=== PATIENT | female | born 1990 | race Caucasian/White ===

== ENCOUNTER 2016-11-05 23:35 | Observation (INO) ==
--- NOTE | 2016-11-06 00:09 | PROVIDER DOCUMENTATION ---
HPI-Female /OB/Breast - General Chief Complaint: Female Stated Complaint: ABD PAIN Time Seen by Provider: 11/05/16 23:48 Source: reports: patient Allergies/Adverse Reactions: Patient Allergies Allergy/AdvReac Type Severity Reaction Status Date / Time codeine AdvReac VOMITING Verified 11/05/16 23:47 Home Medications: Home Medication List Medication Instructions Recorded Confirmed Last Taken Type NK [No Home Medications] 11/05/16 11/05/16 Unknown History - History of Present Illness-Female /OB Nature of Presenting Problem: Pt is a 26 y/o f c chief complaint of severe abd pain p sexual intercours this evening. Pt noted some mild pain during intercourse but had more profound pain after. She also reports dysuria. Pt denies any vaginal bleeding or d/c. 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 Pt denies other medical hx. On arrival, pt is in moderate distress. Review of Systems - Adult - REVIEW OF SYSTEMS - ADULT Constitutional: reports: no symptoms reported. denies: chills, fatique Eyes: reports: no symptoms reported. denies: blurred vision, double vision Ears, Nose, Mouth & Throat: reports: no symptoms reported. denies: ear pain, nose pain Cardiovascular: reports: no symptoms reported. denies: chest pain, orthopnea Respiratory: reports: no symptoms reported. denies: cough, shortness of breath Gastrointestinal: reports: see HPI, abdominal pain. denies: nausea Genitourinary: reports: no symptoms reported. denies: dysuria, hematuria Musculoskeletal: reports: no symptoms reported. denies: joint pain, joint swelling Integumentary: reports: no symptoms reported. denies: hives, itching Neurological: reports: no symptoms reported. denies: numbness, paresthesia Psychiatric: reports: no symptoms reported. denies: anxiety, emotional problems Endocrine: reports: no symptoms reported. denies: cold intolerance, heat intolerance Hematologic/Lymphatic: reports: no symptoms reported. denies: blood clots, lymphedema Allergic/Immunologic: reports: no symptoms reported. denies: allergic reactions , food allergy All Other Systems: Reviewed and Negative Past History - Adult - PAST MEDICAL HISTORY-ADULT Review of Records: reports: Old Records Reviewed, Nursing Assessment Review, Medications Reviewed, Social history reviewed & non-contributory. Major Childhood Illnesses: reports: denies history Cardiovascular: reports: denies history Respiratory: reports: denies history Gastrointestinal: reports: denies history Obstetrical/Gynecological: reports: denies history Genitourinary: reports: denies history Musculoskeletal: reports: denies history Neurological: reports: denies history Endocrine/Immune: reports: denies history Other Conditions: reports: denies history - IMMUNIZATION STATUS Childhood Immunizations: See Nurse Assessment Flu Vaccine: See Nurse Assessment - FAMILY HISTORY Family History: reviewed, not pertinent - SOCIAL HISTORY Smoking: denies Substance Use: none/never Alcohol Use Frequency: never Physical Exam-General - PHYSICAL EXAM-ADULT Initial Vital Signs Reviewed: Yes - CONSTITUTIONAL General Appearance: alert, no apparent distress - EYES Eyes: PERRL/EOMI, pink conjunctivae - HEAD, EARS, NOSE, MOUTH & THROAT HENMT: normocephalic/atraumatic, moist mucous membranes, normal ENT inspection - NECK Neck: normal inspection - RESPIRATORY Respiratory: chest non-tender, lungs clear, normal breath sounds - CARDIOVASCULAR Cardiovascular: normal peripheral pulses, regular rate, rhythm - GASTROINTESTINAL (ABDOMEN) Abdominal Exam: normal bowel sounds, tenderness (suprapubic and adnexal) - LYMPHATIC Lymphatic: no adenopathy - MUSCULOSKELETAL Back Exam: normal inspection, no CVA tenderness, no vertebral tenderness Extremity: normal range of motion, non-tender, normal inspection - SKIN Integumentary: normal color, normal turgor, warm/dry - NEUROLOGIC Neurologic: grossly normal, no motor/sensory deficits - PSYCHIATRIC Psych/Mental Status: normal mood/affect, normal thought content, normal thought process, oriented x 3 Progress - PLAN OF CARE/RESULTS Progress/Plan/Lab Results: Vital Signs - 8 hr 11/05/16 23:43 11/06/16 00:47 Temperature 97.1 F L Pulse Rate 92 H Pulse Rate [Sitting] 78 Pulse Rate [Standing] 91 H Pulse Rate [Supine] 76 Respiratory Rate 16 Blood Pressure 117/69 Blood Pressure [Sitting] 112/66 Blood Pressure [Standing] 107/65 Blood Pressure [Supine] 118/69 O2 Sat by Pulse Oximetry 97 Bedside Urine ED: Urine Bedside Start: 11/05/16 23:48 Freq: ORDERED Status: Active Activity Type Activity Date Activity User E-Sign Co-Sign Detail Recorded Client Recorded Date Recorded By Document 11/06/16 00:10 [id number] 11/06/16 00:11 [id number] 11/06/16 00:10 Point of Care [Bedside Point of Care] -Lot # [id number] - Results Negative -Control Line Visible? Yes Laboratory Results - last 24 hr 11/05/16 11/06/16 11/06/16 23:50 00:39 00:39 WBC 20.79 H RBC 4.32 Hgb 12.6 Hct 37.1 MCV 85.9 MCH 29.2 MCHC 34.0 RDW Std Deviation 13.1 Plt Count 192 MPV 10.7 H Immature Gran % (Auto) 0.2 Neut % (Auto) 90.3 H Lymph % (Auto) 4.9 L [place] % (Auto) 4.6 Eos % (Auto) 0.0 Baso % (Auto) 0.0 Immature Gran # (Auto) 0.04 Neut # (Auto) 18.78 H Lymph # (Auto) 1.01 L [place] # (Auto) 0.95 H Eos # (Auto) 0.00 Baso # (Auto) 0.01 Sodium 134 L Potassium 3.7 Chloride 101 Carbon Dioxide 22 L Anion Gap 12 BUN 9 Creatinine 0.6 Estimated GFR/1.73 m2 > 60 BUN/Creatinine Ratio 15 Glucose 113 H Calculated Osmolality 268 Calcium 9.8 Total Bilirubin 0.70 AST 15 ALT 9 L Alkaline Phosphatase 45 Total Protein 6.9 Albumin 4.4 Globulin 3.0 Albumin/Globulin Ratio 2.0 Urine Source CLEAN CATCH Urine Color YELLOW Urine Clarity CLEAR Urine pH 5.0 Ur Specific [place] 1.020 Urine Protein TRACE A Urine Ketones 3+(Large) A Urine Blood TRACE Urine Nitrite NEGATIVE Urine Bilirubin NEGATIVE Urine Urobilinogen NORMAL Urine Microscopic RBC <10 Urine WBC TRACE A Urine Microscopic WBC <10 Ur Epithelial Cells <10 Urine Bacteria 1+ Urine Glucose NEGATIVE Orders Category Date Time Status ED: Orthostatic Vital Signs (E as directed Care 11/06/16 00:14 Active Pelvic set up DIRECTED Care 11/05/16 23:52 Active Saline Loc NOW Care 11/06/16 00:14 Active [ED: Urine Bedside] ORDERED Care 11/05/16 23:[address] ABD/PELVIS W/ IV CONT ONLY [CT] Stat Exams 11/06/16 00:14 Taken CBC WITH ELECTRONIC DIFF [HEME] Stat Lab 11/06/16 00:39 Completed COMPREHENSIVE METABOLIC PANEL [CHEM] Stat Lab 11/06/16 00:[address] W/POSS RFLX CULT [URINALYSIS] Stat Lab 11/06/16 00:15 Completed URINE CULTURE [RM] Routine Lab 11/06/16 01:44 Ordered Hydromorphone [Dilaudid] Med 11/06/16 00:15 Discontinued 1 mg IV NOW ONE Ondansetron [Zofran] Med 11/06/16 00:15 Discontinued 4 mg IV NOW ONE Result Diagrams: 11/06/16 00:39 11/06/16 00:39 - CT/MRI 1 CT Study: Abdomen, Pelvis Impression: Abnormal (Moderate amount of free fluid in the pelvis along with several loculated peripherally enhancing fluid collections in the lower pelvis. Differential includes pelvic inflammatory disease with multiple abscesses, tubo-ovarian abscess, or ovarian/parovarian cysts. Further evaluation with ultrasound may be helpful - prelim radiology report.) Departure - Departure Date of Disposition Decision: 11/06/16 Time of Disposition Decision: 02:23 DIAGNOSIS: Pelvic inflammatory disease (PID) Disposition: ADMITTED INPATIENT 09 Certified Medical Emergency: Emergent Condition: Stable Referrals and Follow-Ups: Elian Hector MD [ACTIVE STAFF PHYSICIAN] - None,PCP [Primary Care Provider] - Work Excuses: Return to School/Parent Work - Critical Care Note This patient required my direct & personal management of CC.: No Attestation - Physician/ GISSELLE Attestation Patient care was provided by Advanced Practice Provider:: Yes Advanced Practice Provider:: Zay Velazquez Advanced Practice Provider documentation review:: The Mid-level provider documentation, treatment plan and medical decision making was reviewed by the physician who agrees with all treatment and medical decision making by the P.
[2016-11-06] MEDS ORDERED: DILAUDID IV ONE (00:15)
[2016-11-06] MEDS ORDERED: ZOFRAN IV ONE (00:15)
[2016-11-06 00:59] LABS: AGAP 12; ALBUMIN 4.4 g/dL (3.5-5.0); ALKALINE PHOSPHATASE 45 U/L (32-104); BUN 9 mg/dL (8-22); CALCIUM 9.8 mg/dL (8.8-10.2); CHLORIDE 101 mmol/L (98-107); COSMO 268; GOT 15 U/L (10-30); GPT 9 U/L (10-36); POTASSIUM 3.7 mmol/L (3.5-5.1); SODIUM 134 mmol/L (136-145); TCO2 22 mmol/L (25-35); TOTAL PROTEIN 6.9 g/dL (6.3-8.3)
[2016-11-06 01:32] LABS: HEMATOCRIT 37.1 % (37.0-47.0); HEMOGLOBIN 12.6 g/dL (12.0-16.0); IMM GRAN# 0.04 X1000 (0.0-0.04); IMM GRAN% 0.2 % (0.0-0.5); LYMPH# 1.01 X1000 (1.2-3.4); LYMPH% 4.9 % (20.5-51.1); MANUAL DIFF NEEDED? NO; MCH 29.2 PG (27-31); MCV 85.9 FL (81-99); MONO# 0.95 X1000 (0.11-0.59); MONO% 4.6 % (1.7-9.3); MPV 10.7 FL (7.4-10.4); NEUT% 90.3 % (42.2-75.2); PLT 192 X1000 (130-400); RBC 4.32 XMIL (4.2-5.4)
[2016-11-06 01:44] LABS: BILIRUBIN URINE NEGATIVE (NEGATIVE); BLOOD URINE TRACE (NEGATIVE); CLARITY CLEAR (CLEAR); COLOR YELLOW; GLUCOSE URINE NEGATIVE (NEGATIVE); LEUKOCYTES URINE TRACE (NEGATIVE); NITRITE URINE NEGATIVE (NEGATIVE); PROTEIN URINE TRACE mg/dL (NEGATIVE); URINE CULTURE PL NEEDED? YES; URINE EPITHELIAL CELLS <10 /HPF (<10); URINE RBC <10 /HPF (<10); URINE SOURCE CLEAN CATCH; URINE WBC <10 /HPF (<10); UROBILINOGEN URINE NORMAL
[2016-11-06] MEDS ORDERED: ZOSYN 3.375 GM/NS 3.375 GM/50 ML IVPB IV ONE (02:24)
[2016-11-06] MEDS ORDERED: FLAGYL 750 MG in NS 150 ML IV ONE (02:24)
[2016-11-06] MEDS ORDERED: MORPHINE IV PRN (02:27)
[2016-11-06] MEDS ORDERED: NS 1,000 ML IV ONE (02:27)
[2016-11-06] MEDS ORDERED: FLAGYL ONE (02:28)
[2016-11-06] MEDS ORDERED: [UNRECOGNIZED DRUG - OTHER] ONE (02:28)
[2016-11-06] MEDS: ZOFRAN IV PRN ×2 (03:12→09:14)
[2016-11-06 06:03] LABS: BASO% 0.1 % (0.0-0.8); HEMATOCRIT 33.5 % (37.0-47.0); HEMOGLOBIN 11.3 g/dL (12.0-16.0); IMM GRAN# 0.04 X1000 (0.0-0.04); IMM GRAN% 0.2 % (0.0-0.5); LYMPH# 0.91 X1000 (1.2-3.4); LYMPH% 5.6 % (20.5-51.1); MANUAL DIFF NEEDED? NO; MCH 29.3 PG (27-31); MCHC 33.7 g/dL (33-37); MCV 86.8 FL (81-99); MONO# 0.76 X1000 (0.11-0.59); MONO% 4.7 % (1.7-9.3); MPV 10.2 FL (7.4-10.4); NEUT% 89.4 % (42.2-75.2); PLT 145 X1000 (130-400); RBC 3.86 XMIL (4.2-5.4)
[2016-11-06 06:33] VITALS: BP 90/40
[2016-11-06] MEDS ORDERED: PERCOCET-5 PO PRN (07:24)
[2016-11-06] MEDS: MORPHINE IV PRN ×2 (09:14→12:05)
--- NOTE | 2016-11-06 10:09 | Diag Imaging Result Doc PS360 ---
EXAM: US PELVIC NON-GASKET SUPERVISOR COMPLETE, US TRANSVAGINAL NON-OB INDICATION: Pelvic cysts COMPARISON: None. FINDINGS: The uterine echotexture is grossly unremarkable measuring up to 8.6 x 4.1 x 3.3 cm. The endometrium is 1.3 cm in thickness. The left ovary is grossly unremarkable measuring up to 4.2 cm. There is a complex multiloculated fluid collection in the right adnexal region it measures up to 6.9 cm. This lesion is difficult to distinguish from the right ovary. It is concerning for a tubo-ovarian abscess. Please correlate clinically. Note that this was also suggested on a recent CT. There is at least moderate free fluid layering in the pelvis. IMPRESSION: Multiloculated complex cystic mass arising from the right adnexa with free fluid layering in the pelvis. Tubo-ovarian abscess should be considered. Electronically signed by Zay Smith 11/06/2016 10:06 AM
--- NOTE | 2016-11-06 10:37 | HISTORY AND PHYSICAL ---
ADMITTING PHYSICIAN: Zay Driver MD. ADMITTING DIAGNOSIS: Pelvic pain. SUMMARY: Ms. Nolasco is a 26-year-old, nulliparous female who began having pelvic pain during intercourse. She presented to the emergency room where, as part of her evaluation, a CAT scan was performed. There was a moderate amount of free fluid in the pelvis along with several loculated, peripherally enhancing fluid collections in the lower pelvis. Differential diagnosis included pelvic inflammatory disease with multiple abscesses, tuboovarian abscesses, or ovarian cyst. Other evaluations in the emergency room showed a white count of 20.79 with a hemoglobin and hematocrit of 12.6 and 37.1. She was afebrile. Urinalysis was normal. Her blood chemistries were also normal. The patient's pain improved. However, the ER physician wished her to be admitted for further evaluation. This morning, she states she is feeling better. An ultrasound has been ordered. She was started on Zosyn and Flagyl last night and early this morning. This morning, her laboratory evaluations showed that her white count has dropped to 16.16. Her hemoglobin and hematocrit are 11.3 and 33.5. This certainly could be dilutional from the IVs. PAST MEDICAL HISTORY: Patient has never been . She has had unprotected intercourse for multiple years. 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 She has had a breast enhancement procedure. She has had her tonsils and adenoids removed. Otherwise, there are no chronic medical or surgical illnesses. She denies instances of pelvic inflammatory disease. ALLERGIES: Codeine. CURRENT MEDICATIONS: None. PHYSICAL EXAMINATION: GENERAL: Shows a thin female in no distress. VITAL SIGNS: Stable. Her heart rate is 73, blood pressure is 96/56, and she is afebrile. CARDIAC: Normal. PULMONARY: Normal. ABDOMEN: Tender without rebound, rigidity, or guarding. EXTREMITIES: No clubbing, edema, or cyanosis. IMPRESSION: Pelvic pain. I suspect that she had some old pelvic inflammatory disease and that during intercourse, she may have had a loculation to rupture. I see no evidence of active pelvic inflammatory disease. I see no evidence of active intra-abdominal or pelvic bleeding. PLAN: We will get the ultrasound as it has been ordered. Unless something remarkable is shown on the ultrasound, I anticipate discharging her after the ultrasound on p.o. antibiotics and follow up in the office. cc: Zay Driver MD
--- NOTE | 2016-11-06 10:58 | Diag Imaging Result Doc PS360 ---
EXAM: CT ABD/PELVIS W/ IV CONT ONLY INDICATION: pelvic pain p intercourse COMPARISON: None. FINDINGS: There is a tiny hypodensity at the inferior aspect of the right hepatic lobe that probably represents a small cyst. There is a complex loculated fluid collection in the right adnexa with peripheral enhancement measuring up to 6.6 x 5.5 cm axially. A tubo-ovarian abscess cannot be excluded. There is also significant free fluid that is layering in the pelvis. Although the appendix is not clearly identified, there is no definite sign of appendicitis. There is no free abdominal gas. There is no evidence of bowel obstruction. The remainder of the solid viscera of the abdomen and pelvis and the remainder of the GI tract are essentially unremarkable. IMPRESSION: 1.Complex right adnexal fluid collection with multiple loculations and peripheral enhancement concerning for potential tubo-ovarian abscess. 2.Significant layering free fluid in the pelvis as well. 3.Other incidental/nonacute findings detailed above. Electronically signed by Zay Smith 11/06/2016 10:55 AM
--- NOTE | 2016-11-06 11:40 | Diag Imaging Result Doc PS360 ---
EXAM: CHEST-2 VIEWS INDICATION: cough TECHNIQUE: 2 views COMPARISON: None. FINDINGS: The lungs are grossly clear. There is no discrete pleural fluid collection or pneumothorax. The cardiomediastinal silhouette and central vasculature are grossly unremarkable. IMPRESSION: No evidence of acute pathology by plain radiograph. Electronically signed by Zay Smith 11/06/2016 11:37 AM
--- NOTE | 2016-11-07 04:40 | DISCHARGE SUMMARY ---
ADMISSION DATE: 11/06/2016 DISCHARGE DATE: 11/06/2016 ADMITTING DIAGNOSIS: Pelvic pain. DISCHARGE DIAGNOSIS: Right ovarian cyst. SUMMARY: Lena Dow is a 26-year-old, nulliparous female who had sudden onset of pelvic pain during intercourse. It was severe enough that she came to the emergency room where she was found to have a hemoglobin and hematocrit of 12.6 and 37.1 with a white count of 20.79. For further workup, a CAT scan was performed which showed a possible adnexal mass. She was admitted to the hospital. Due to concerns of PID, even though she was afebrile, she was begun on Zosyn and Flagyl. This morning, repeat laboratory evaluations showed her hemoglobin and hematocrit to be 11.3 and 33.5. White count was 16.16. She remained afebrile. An ultrasound was performed this morning which confirmed the results of the CAT scan. There is a 6.9 cm complex multiloculated fluid collection in the right adnexal region. This could be an ovarian cyst or it could be a tuboovarian abscesses. Due to the fact that the patient has never become in spite of unprotected intercourse, I am concerned that this could be old pelvic inflammatory disease. She states her pain is better. I, therefore, going to discharge her with followup in my office. I am going to give her a prescription for Phenergan for nausea and Percocet 7.5 for pain. I am going to put her on doxycycline. She has my office number. She will call to set up an appointment for followup. At some point, laparoscopic surgery may be necessary. cc: Zay Driver MD
== END 2016-11-06 12:38 | disposition home or self-care (01) ==
LOC: P.MEDSURG 23:35 → P.ED 23:35
PROVIDERS: ADMIT Obstetrics & Gynecology; ATTEND Obstetrics & Gynecology